=== PATIENT | male | born 2005 | race Caucasian/White ===

== ENCOUNTER 2024-09-24 13:22 | Emergency (ER) | payer OTHER, MEDICAID, SELFPAY ==
[2024-09-24 13:22] VITALS: BMI 26.6
[2024-09-24 13:35] VITALS: BP 126/66; PULSE 73; RESP 18; TEMP 36.6; O2SAT 97
--- NOTE | 2024-09-24 13:48 | PD.EDALLER ---
ED Allergic Reaction RME/HPI General Chief complaint: Allergic Reaction Stated complaint: ALLERGIC REACTION X3DAY Time Seen by Provider: 09/24/24 13:27 Arrival date/time: 09/24/24 13:22 19-year-old male presents emergency department due to complaints of allergic reaction ongoing x 3 days patient reports he went to the clinic and was given Benadryl which improved his symptoms but symptoms persist Limitations: no limitations Related Data Previous Rx's ?Medication ?Instructions ?Recorded prednisone 10 mg tablet 30 mg (3 x 10 mg) PO BID 3 days 09/24/24 #18 tabs Allergies Allergy/AdvReac Type Severity Reaction Status Date / Time NKA* Allergy Uncoded 09/22/14 11:15 Review of Systems Review of Systems Systems Reviewed: All systems reviewed, normal except as documented Constitutional Constitutional: Reports system reviewed and no additional complaints, except as documented, Denies fever(s) and Denies headache(s) Eyes Eyes: Reports system reviewed and no additional complaints, except as documented and Denies blurry vision ENT Ears, Nose, Mouth, and Throat: Reports system reviewed and no additional complaints, except as documented, Denies headache(s), Denies nasal congestion and Denies nasal discharge Cardiovascular Cardiovascular: Reports system reviewed and no additional complaints, except as documented, Denies chest pain and Denies dyspnea Respiratory Respiratory: Reports system reviewed and no additional complaints, except as documented, Denies chest congestion, Denies cough and Denies dyspnea Gastrointestinal Gastrointestinal: Reports system reviewed and no additional complaints, except as documented and Denies abdominal pain Musculoskeletal Musculoskeletal: Reports system reviewed and no additional complaints, except as documented, Denies abnormal gait, Denies arthralgias, Denies deformity, Reports joint swelling, Denies numbness, Reports stiffness and Denies tingling Integumentary/Breasts Skin/Breast: Reports system reviewed and no additional complaints, except as documented, Reports pruritus and Reports rash Neurologic Neurologic: Reports system reviewed and no additional complaints, except as documented, Reports as per HPI, Denies abnormal gait, Denies headache(s), Denies numbness and Denies tingling Past Medical History Social History SMOKING STATUS: Never smoker ED Exam General Limitations: Present no limitations General appearance: Present alert and in no apparent distress Head Head exam: Present atraumatic Eye Eye exam: Present normal appearance, PERRL and EOMI ENT ENT exam: Present normal exam, normal oropharynx and mucous membranes moist Neck Neck exam: Present normal inspection, full ROM and trachea midline Chest Chest inspection: Present normal inspection and symmetric chest wall rise Respiratory Respiratory exam: Present normal lung sounds bilaterally Cardiovascular Cardiovascular exam: Present regular rate, normal rhythm and normal heart sounds Abdominal Exam Abdominal exam: Present soft and normal bowel sounds Extremities Exam Extremities exam: Present normal inspection, full ROM, tenderness and normal capillary refill; Absent pedal edema, joint swelling or calf tenderness Back Exam Back exam: Present normal inspection and full ROM Neurological Exam Neurological exam: Present alert, oriented X3 and CN II-XII intact Psychiatric Psychiatric exam: Present normal affect and normal mood Skin Skin exam: Present warm, dry and rash Course Quality Measures none Orders Category Date Time Status Dexamethasone Inj [Decadron Inj] Med 09/24/24 13:49 Discontinued 10 mg IM X1 ONE DiphenhydrAMINE [Benadryl] Med 09/24/24 13:49 Discontinued 25 mg PO X1 ONE Famotidine [Pepcid] Med 09/24/24 13:49 Discontinued 40 mg PO X1 ONE Vital Signs Vital signs: Vital Signs Temperature 97.9 F 09/24/24 13:35 Pulse Rate 73 09/24/24 13:35 Respiratory Rate 18 09/24/24 13:35 Blood Pressure 126/66 09/24/24 13:35 Pulse Oximetry (%) 97 09/24/24 13:35 Oxygen Delivery Method Room Air 09/24/24 13:35 O2 saturation 97% room air within normal Allergic Reaction MDM Narrative MDM Narrative:: 19-year-old male presents emergency department due to complaints of allergic reaction ongoing x 3 days patient reports he went to the clinic and was given Benadryl which improved his symptoms but symptoms persist On exam patient has rash which is consistent with urticaria/allergic reaction, patient is no evidence of anaphylaxis Patient medicated here which improved symptoms Patient discharged home in no distress to follow-up with primary care doctor in the next 24 to 48 hours and for any worsening symptoms to return to the ER immediately Patient data External records reviewed:: [facility] previous records Clinical information provided by:: patient Social determinants that could affect healthcare access:: none Patient has the following chronic illnesses:: None How is presenting disease/condition affected by chronic disease/condition?: no chronic disease Evaluation data The following diagnostics were reviewed and interpreted by me:: other (specify) Lab and/or radiology exams considered but not ordered:: Consider not ordered Interpretation Summary: N/A Medications / Prescriptions Medications or Prescriptions considered but not ordered:: Given Medication administrations:: Medication Administration History Discontinued Medications Dexamethasone Sodium Phosphate (Dexamethasone Sod Phos Inj 10 Mg/Ml Vial) 10 mg IM X1 ONE Stop: 09/24/24 13:50 Last Admin: 09/24/24 13:58 Dose: 10 mg Documented By: EKATERINA Diphenhydramine HCl (Diphenhydramine 25 Mg Capsule) 25 mg PO X1 ONE Stop: 09/24/24 13:50 Last Admin: 09/24/24 13:58 Dose: 25 mg Documented By: KF Famotidine (Famotidine 20 Mg Tablet) 40 mg PO X1 ONE Stop: 09/24/24 13:50 Last Admin: 09/24/24 13:58 Dose: 40 mg Documented By: EKATERINA Given Consultations Consultation(s) initiated? (list below): No Diagnosis Differential Diagnosis allergic reaction: anaphylaxis, allergic reaction and angioedema Most likely diagnosis given after review of the tests above:: Allergic reaction Admission Indicated Admission indicated?: not indicated Admission Request Was there a request for admission?: No Disposition Plan Disposition Plan: Discharge Discharge Attestation Discharge Attestation: The patient and all family members were given an opportunity to ask questions and understood the discharge instructions. Discharge instructions specifically effects, indications for sooner follow up or return to the emergency department, and the expected course of current diagnosis. Patient condition: Stable Discharge Plan Plan Patient Disposition: HOME (Self Care) Discharge Disposition comment: Stable Prescriptions/Referrals Prescriptions/Med Rec: New prednisone 10 mg tablet 30 mg PO BID 3 Days Qty: 18 0RF Problem List Clinical Impression: Urticaria Patient/Caregiver Discharge Instructions Education Materials: ED Hives (Adult) Additional Instructions: Please follow up with your primary care doctor in the next 24-48hrs for any worsening symptoms return here immediately Print Language: Serbian Stand Alone Forms: Margaret Award Info., Patient Portal Info Letter PA/[employer] Supervising Physician PA/ARTHUR Supervising Physician: Dr. de paz
[2024-09-24] MEDS: FAMOTIDINE 20 MG TABLET 40 MG PO (13:58)
[2024-09-24] MEDS: DEXAMETHASONE SOD PHOS INJ 10 MG/ML VIAL IM (13:58)
[2024-09-24] MEDS: DiphenhydrAMINE 25 MG CAPSULE PO (13:58)
== END 2024-09-24 14:55 | disposition home or self-care (01) ==
PROVIDERS: Emergency Provider Family Medicine; PCP Physician Assistant
DX: L50.9 Urticaria, unspecified (principal)
CPT/HCPCS: 96372; 99283; J1100; A9270